=== PATIENT | male | born 1950 | race Caucasian/White ===

== ENCOUNTER 2023-12-29 06:15 | Emergency (ER) | payer OTHER ==
[2023-12-29 06:30] VITALS: BP 110/67; PULSE 58; RESP 16; TEMP 98; BMI 22.7
[2023-12-29] MEDS: ACETAMINOPHEN 325 MG TABLET (FP) PO ONE (06:48)
[2023-12-29] MEDS ORDERED: ACETAMINOPHEN 325 MG TABLET (FP) ONE (06:51)
[2023-12-29 08:51] LABS: HEMATOCRIT 43.4 % (35.4-49); HEMOGLOBIN 13.9 G/dL (11.7-16.9); MCH 27.6 pg (25.7-33.7); MCHC 32.1 g/dl (32.0-35.9); MEAN PLT VOLUME 9.7 fl (7.5-11.1); PLATELET COUNT 176.4 10^3/uL (134-434); RBC 5.05 10^6/uL (4.00-5.60); RDW 13.9 % (11.9-15.9); WHITE BLOOD COUNT 7.1 10^3/uL (4.0-10.8)
[2023-12-29 09:03] LABS: ALBUMIN 4.5 g/dl (3.4-5.0); CALCIUM 9.5 mg/dl (8.5-10.1); POTASSIUM 4.3 mmol/L (3.5-5.1); TOT PROT 7.1 g/dl (6.4-8.2)
== END 2023-12-29 10:05 | disposition home or self-care (01) ==
LOC: FER 06:15
DX: M54.6 Pain in thoracic spine (principal); R09.81 Nasal congestion; Z20.822 Contact with and (suspected) exposure to COVID-19
CPT/HCPCS: 0241U-QW; 36415; 71046-TC-FY; 80053; 80061; 82550; 82553; 84484; 85027; 85379; 93005; 99285-25